=== PATIENT | male | born 1985 | race Caucasian/White ===

== ENCOUNTER 2017-06-16 08:29 | Emergency (ER) | payer OTHER ==
[~2017-06-16] VITALS: Ht 185.4 cm; Wt 110.0 kg
[2017-06-16 08:34] VITALS: BP 177/93; PULSE 70; RESP 16; TEMP 97.8; O2SAT 98
[2017-06-16 09:02] LABS: BLOOD, URINE TRACE (NEG); GLUCOSE,URINE NEG (NEG); KETONE, URINE NEG (NEG); NITRITE,URINE NEG (NEG)
--- NOTE | 2017-06-16 09:09 | PD ---
HPI Chief Complaint: Abdominal Pain Time Seen by Provider: 08:45 Travel History International Travel<30 days: No Contact w/Intl Traveler<30days: No Traveled to known affect area: No History of Present Illness HPI This is a 32-year-old male who presents to the emergency department with pain in both groins for about 2 weeks ever since he was lifting at the gym. He says he felt a pop in both of his groins and that ever since then he's been having pain, moderate severity, worse with ejaculation, associated with some pain with urination and with having bowel movements. He says the pain is worse when he walks and improved when he rests. He denies any dysuria. Denies any fevers or chills. PFSH Past Medical History Medical History: Denies Significant Hx Cardiac Catheterization: Yes (for wpw) Diminished Hearing: No Social History Alcohol Use: Yes Tobacco Use: No Allergies-Medications (Allergen,Severity, Reaction): Coded Allergies: No Known Allergies (Unverified , 06/16/17) Reported Meds & Prescriptions Reported Meds & Active Scripts Active No Active Prescriptions or Reported Medications Review of Systems Except as stated in HPI: all other systems reviewed are Neg Physical Exam Narrative GENERAL:Well appearing, no acute distress SKIN: Focused skin assessment warm and dry. HEAD: Atraumatic. Normocephalic. EYES: Pupils equal and round. No injection or drainage. ENT: Moist mucous membranes NECK: Trachea midline. CARDIOVASCULAR: Regular rate and rhythm. No murmur appreciated. RESPIRATORY: Clear to auscultation. Breath sounds equal bilaterally. GASTROINTESTINAL: Abdomen soft, mildly tender to palpation in the left lower quadrant with no rebound or guarding. : Marked tenderness with examination of the inguinal canals on both sides, no obvious hernia defect appreciated, no scrotal tenderness or urethral discharge MUSCULOSKELETAL: No obvious deformities. NEUROLOGICAL: Awake and alert. No obvious cranial nerve deficits. Moving all extremities. PSYCHIATRIC: Appropriate mood and affect; insight and judgment normal. Data Data Last Documented VS Vital Signs Date Time Temp Pulse Resp B/P (MAP) Pulse Ox O2 Delivery O2 Flow Rate FiO2 06/16/17 08:34 97.8 70 16 177/93 (121) 98 Orders Orders Urinalysis - C+S If Indicated (06/16/17 08:53) Ct Abd/Pel W/O Iv Contrast (06/16/17 ) Labs Laboratory Tests Test 06/16/17 08:55 Urine Collection Type CLEAN CATCH Urine Color YELLOW Urine Turbidity CLEAR Urine pH 6.0 Urine Specific [place] 1.008 Urine Protein 30 mg/dL Urine Glucose (UA) NEG mg/dL Urine Ketones NEG mg/dL Urine Occult Blood TRACE Urine Nitrite NEG Urine Bilirubin NEG Urine Leukocyte Esterase NEG Urine RBC 4-9 /hpf Urine WBC 3-5 /hpf Urine Squamous Epithelial Cells 0-5 /hpf Microscopic Urinalysis Comment CULT NOT INDICATED Urine Collection Time 08:55 [facility] Medical Decision Making Medical Screen Exam Complete: Yes Emergency Medical Condition: Yes Interpretation(s) Afebrile, no tachycardia, hypertensive Urinalysis demonstrates some red blood cells Last 24 hours Impressions Abdomen/Pelvis CT 06/16/17 0000 Signed Impressions: Service Date/Time: Friday, June 16, 2017 09:34 - CONCLUSION: Negative for acute process. Axel Newton MD FACR Differential Diagnosis Inguinal hernia, epididymitis, urinary tract infection, orchitis, kidney stone Narrative Course This is a 32-year-old male who presents to the emergency department with groin pain that's been going on ever since he was lifting weights. I think I appreciate a small defect on the right side but I don't appreciate an obvious hernia on the left. Urinalysis was obtained to rule out infection which demonstrated some blood but no bacteria. I did advise him to have his urinalysis repeated by his primary care physician. CT scan was obtained to rule out kidney stone which was negative. I continue to think the patient has a occult hernia. He was referred to general surgery and he was also given follow-up for [facility]. Diagnosis Primary Impression: Groin pain Qualified Codes: R10.30 - Lower abdominal pain, unspecified Referrals: Eliud Hemphill MD Patient Instructions: General Instructions Additional Instructions: If you develop severe or worsening abdominal pain, fever>100.4, persistent vomiting or inability to eat or drink return to the emergency department immediately. Follow-up with a general surgeon regarding possible hernia. Have your urinalysis repeated by your primary care physician to evaluate for more blood. Med/Other Pt SpecificInfo: No Change to Meds Scripts No Active Prescriptions or Reported Meds Disposition: 01 DISCHARGE HOME Condition: Stable Deedee Estrada MD Jun 16, 2017 09:09
[2017-06-16 09:15] LABS: METHOD OF COLLECTION CLEAN CATCH; URINE COLOR YELLOW (YELLW/STRAW)
[2017-06-16 09:16] LABS: COMMENT (UR) CULT NOT INDICATED; CULTURE IF INDICATED CULT NOT INDICATED; SQUAMOUS EPITHELIAL CELL URINE 0-5 /hpf (0-5)
--- NOTE | 2017-06-16 09:48 | RADRPT ---
EXAM DATE/TIME: 06/16/2017 09:34 [facility] COMPARISON: No previous studies available for comparison. INDICATIONS : Right groin pain x 3 weeks. ORAL CONTRAST: No oral contrast ingested. RADIATION DOSE: 18.10 CTDIvol (mGy) MEDICAL HISTORY : None SURGICAL HISTORY : None. ENCOUNTER: Initial ACUITY: 3 weeks PAIN SCALE: 4/10 LOCATION: Right lower quadrant TECHNIQUE: Volumetric scanning of the abdomen and pelvis was performed. Using automated exposure control and ad justment of the mA and/or kV according to patient size, radiation dose was kept as low as reasonably achievable to obtain optimal diagnostic quality images. DICOM format image data is available electro nically for review and comparison. FINDINGS: LOWER LUNGS: The visualized lower lungs are clear. LIVER: Homogeneous density without lesion. There is no dilation of the biliary tree. No calcified gallston es. SPLEEN: Normal size without lesion. PANCREAS: Within normal limits. KIDNEYS: Normal in size and shape. There is no mass, stone, or hydronephrosis. ADRENAL GLANDS: Within normal limits. VASCULAR: There is no aortic aneurysm. BOWEL/MESENTERY: The stomach, small bowel, and colon demonstrate no acute abnormality. There is no free intraperitone al air or fluid. ABDOMINAL WALL: Within normal limits. RETROPERITONEUM: There is no lymphadenopathy. BLADDER: No wall thickening or mass. REPRODUCTIVE: Within normal limits. INGUINAL: There is no lymphadenopathy or hernia. MUSCULOSKELETAL: Mild facet disease L5-S1. CONCLUSION: Negative for acute process. Axel Newton MD FACR on June 16, 2017 at 9:45 Board Certified Radiologist. This report was verified electronically.
== END 2017-06-16 10:08 | disposition home or self-care (01) ==
LOC: PHED 08:29
DX: R10.31 Right lower quadrant pain (principal); R10.32 Left lower quadrant pain
CPT/HCPCS: 74176; 81001; 99284